=== PATIENT | female | born 1935 | race Caucasian/White ===

== ENCOUNTER 2024-07-01 15:30 | Outpatient (REF) | payer MEDICARE, SELFPAY ==
--- OUTSIDE RECORDS SUMMARY | 2024-07-01 15:37 | XMS_ITS | Encounter Summary ---
Author Organization [facility] Address [address] [place] [address] Care Team Providers Care Structural Steel Shop Supervisor Name Role Phone Tera Serrano MD Primary Care Provider Reason for Visit * Reason Onset Date Comments AWV 06/19/2024 LEFT MSG FOR PAT IENT TO CALL BACK - NEED TO SCHEDULED AWV Encounter Details Date Type Department Care Team (Late st Contact Info) Description 06/19/2024 Telephone Adult Medicine [facility] [address] [place] [address] Tera Serrano MD [address] [place] [address] AWV (LEFT MSG FOR PATIENT TO CALL BACK - NEED TO SCHEDULED AWV ) Social History Tobacco Use Types Packs/Day Years Used Date Smoking Tobacco: Never Smokeless Tobacco: Never Alcohol Use Standard Drinks/Week Comments No 0 (1 standard drink = 0.6 oz pur e alcohol) Housing Instability Answer Date Recorde d Are you worried that in the next 2 months you may not have stable housing? No 03/12/2024 Food Access & Nutrition Answer Date Rec orded Do you have access to a vari ety of food including fruits and vegetables? No 03/12/2024 Health Literacy Answer Date Recorded How often do you need to hav e someone help you when you read instructions, pamphlets, or other written material from your doctor or pharmacy? Never 03/12/2024 Caregiver: How often do you need to have someone help you when you read instructions, pamphlets, or other written material from your doctor or pharmacy? Not on file 03/12/2024 Financial Risk Answer Date Recorded How hard is it for you to pa y for the very basics like food, housing, medical care, and air conditioning / heating? Not very hard 03/12/2024 Transportation Answer Date Recorded Has the lack of transportati on kept you from meetings, work, or from getting things needed for daily living? No Has the lack of transportati on kept you from medical appointments or from getting medications? No 03/12/2024 Social Isolation Answer Date Recorded How often do you feel lonely or isolated from th ose around you? Never 03/12/2024 Food Risk Answer Date Recorded Within the past 12 months we worried whether our food would run out before we got money to buy more. Never true 03/12/2024 Within the past 12 months th e food we bought just didn't last and we didn't have money to get more. Never true 03/12/2024 Dependent Care Answer Date Recorded Do you need help finding or paying for care for your loved ones. For example, child care giver or elderly care for an older adult? No 03/12/2024 Education Answer Date Recorded Do you think completing more education or training, like finishing a GED, going to college, or learning a trade, would be helpful for you? No 03/12/2024 Employment and Income Answer Date Recor ded During the last four weeks, have you been actively looking for work? No 03/12/2024 Living Situation Answer Date Recorded What is your living situation? 0 03/12/2024 Comments No Sex and Gender Information Value Date Recorded Sex Assigned at Not on file Legal Sex Female 3:43 AM EST Gender Identity Not on file Sexual Orientation Not on file documented as of this encounter Progress Notes * Mary Rider - 06/19/2024 11:46 AM EDT If patient calls back please schedule her an AWV appointment Thank you! documented in this encounter Plan of Treatment Upcoming Encounters Date Type Department Care Team (Late st Contact Info) Description 07/15/2024 1:45 PM EDT Office Visit Orthopedic Surgery [facility] [address] [phone] Shaka Navarro DPM [address] [address] 07/23/2024 1:00 PM EDT Office Visit Adult Medicine [facility] [address] [place] [address] Tera Serrano MD [address] [place] [address] 07/27/2024 10:30 AM EDT Ancillary Procedure [facility] [address] [facility] [address] [place] [address] 09/17/2024 2:30 PM EDT Office Visit Orthopedic Surgery [facility] [address] [address] Shaka Navarro DPM [address] [address] documented as of this encounter Visit Diagnoses Not on filedocumented in this encounter Care Teams Structural Steel Shop Supervisor Relationship Specialty Start Date End Date Tera Serrano MD [address] [place] [address] PCP - General Internal Medicine 02/25/24 documented as of this encounter
--- OUTSIDE RECORDS SUMMARY | 2024-07-01 15:38 | XMS_ITS | Data Portability ---
Author Organization [facility] Address [address] [facility] [address] [place] [address] Care Team Providers Care Box Printer Name Role Phone MARIANA PASTOR Primary Care Provider Assessment Encounter Date Assessment Date Assessment LastModified by Organization Details LastModified Time 11/20/2023 11/20/2023 88-year-old female presents for hearing loss. Otologic exam is unremarkable. Audiometric testing today shows mild to severe sensorineural hearing loss bilaterally which is symmetrical. Results were reviewed with patient and her . She would certainly be an excellent candidate for bilateral amplification and will be set up for hearing aid evaluation. She was given a copy of her hearing test along with medical clearance for bilateral hearing aids. Recommend repeat hearing test every 1 to 2 years or sooner for acute changes in hearing. terrence Not available 11/20/2023 10:40:13 Plan of Treatment Reminders Order Date Submit Date Provider Last Modified By Organization Details Last Modified Time Details Appointments None record ed. Lab None record ed. Referral None record ed. Procedures None record ed. Surgeries None record ed. Imaging None record ed. Medication Orders None record ed. Patient TargetsNo targets recorded. Patient InstructionsNo instructions recorded. Reason for Referral None Reported. Results Created Date Observation Date Name Description Value Unit Range Abnormal Flag Note LastModifiedBy Organization Detail LastModifiedTime 11/20/19 24 audio gram No observ ation record ed. BARCODE Not Available 2023 12:34:29 Result Notes None recorded. 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 ? ?gren's syndrome 11532903 Active 2023 BRIGDIA HUTCHINSON PA-C [address] [facility],[place] [address], [place], [address], [place] - [facility] [place] 4 09:50:11 Sick sinus syndrome 99976885 Active 2023 s/p pacemaker KASSANDRA LINDSEY[address], [address] [facility], [place], [address], [place] - [facility] [place] 4 09:53:43 Replacem ent of aortic valve Completed 202311/20/2023 BRIGIDA HUTCHINSON PA-C [address] [place] [address], [address] [facility], [place], [address], [place] - [facility] [place] 4 09:54:44 Sensorin eural hearing loss of bilatera l ears 249980987 Active 2023 SHAUNA WALLACE [place], [facility] [address] [facility], [address] [facility], [place], [address], [place] - [facility] [place] 4 09:55:11 Problem Notes None recorded. Procedures Surgical History Date Name Laterality Status Provider Name and Address Organization Details Recorded Time 11/20/2023 Comp Audio with Tymps - 09991 & 43423 completed SHAUNA WALLACE [place], CCC-A [address] [facility],[place] [address], [place], [address], [facility] - [facility] 11/20/2023 09:55:20 Imaging Results Imaging Date Name Status LastModified by Organiz ation Details LastModified Time 11/20/2023 audiogram completed BARCODE Information no t available 11/20/2023 12:34:29 Procedure Notes None recorded. Medical Equipment None Reported. Allergies Allergen ID Allergen Name Allergen Category Reaction Reaction Severity Criticality Documentation Date Start Date Code Code System Note Provider Name and Address Organization Details Recorded Time 445897 cow milk allergeni c extract food,medi cation Not available Not available Not available 11/20/2023 07853 5 RxNorm Dino vigil [place] - [facility] 4 10:38:39 Medications Name Sig Start Date Stop Date Status Note LastModified by Organization Details LastModified Time pilocarpine 5 mg tablet active Not Available Not Available Not Available isosorbide mononitrate ER 30 mg tablet,exten ded release 24 hr TAKE 1 TABLET DAILY BY MOUTH active Not Available Not Available No t Available losartan 25 mg tablet Take 1 tablet every day by oral route. active Not Available Not Available No t Available estradiol 0.01% (0.1 mg/gram) vaginal cream USE DIRECTED APPLY 2 GRAMS TO EXTERNAL VAGINA ONCE EVERY DAY FOR 2 WEEKS THEN EVERY OTHER DAY FOR 2 WEEKS THEN EVERY 3 DAYS THEREAFTER active Not Available Not Available N ot Available Vitals None Recorded Social History None recorded. Functional Status None recorded. Mental Status None recorded. Family History Nothing Reported. Medical History Condition Response Cancer Y Arthritis Y Hypertension Y Gynecological HistoryNo gynecological history recorded. Obstetrics History GPAL:G 0 P 0 0 0 0 Past Encounters Encounter ID Performer Location Encounter Start Date Encounter Closed Date Diagnosis/Indication Diagnosis SNOMED-CT Code Diagnosis ICD10 Code Diagnosis Note [id number] VALENCIA FLETCHER PA-C [facility] [address] [address] 11/20/2023 09:18:09 11/20/2023 10:17:57 Sensorineural hearing loss of bilateral ears 656432015 H90.3 Audiologic al evaluation results: Right ear: {{Normal N ormal through 2 kHz Mild M oderate Mo derately-s evere Mamta re Profoun d Mild to severe#}} {{hearing sloping to a mild slopi ng to a moderate s loping to moderately severe slo ping to severe slo ping to profound f lat high frequency low frequency mid frequency cookie bite turner curve SNHL #}} {{with* se nsorineura l hearing loss with condu ctive hearing loss with mixed hearing loss with}} {{excellen t good* fa ir poor no measurable }} word recognitio n. Left ear: {{Normal N ormal through 2 kHz Mild M oderate Mo derately-s evere Mamta re Profoun d Mild to severe#}} {{hearing sloping to a mild slopi ng to a moderate s loping to moderately severe slo ping to severe slo ping to profound f lat high frequency low frequency mid frequency cookie bite turner curve SNHL #}} {{with* se nsorineura l hearing loss with condu ctive hearing loss with mixed hearing loss with}} {{excellen t good* fa ir poor no measurable }} word recognitio n. Tympanomet ry: Right Ear:{{Type A* Type As Type Ad Type C Type C, shallow & rounded Ty pe B Type B with large volume Cou ld not maintain a hermetic seal}} Left Ear:{{Type A* Type As Type Ad Type C Type C, shallow & rounded Ty pe B Type B with large volume Cou ld not maintain a hermetic seal}}Rec: Trial amplificat ion Health Concerns Section Related Observation LastModified by Organization Bryon ls LastModified Time None Recorded Concern Status LastModified by Organization Details LastModified Time None Recorded Advance Directives Directive None Recorded Payers Insurance Date Sequence Insurance Name Policy Number Policy Allen Covered Member ID Allen Member ID Guarantor Name 02/28/2024 1 [employer] Matias [id number] [employer] 02/28/2024 1 [employer] - [facility] (MEDICARE REPLACEMENT HMO) Qlibri Matias [id number] Qlibri Matias Notes Date Note Type Note Provider Name and Address Organization Details Recorded Time 11/20/2023 text/html 86-year-old fema randy with past medical history of lymphedema, Sjogren's syndrome, aortic valve replacement with a bioprosthetic valve, sick sinus syndrome status post pacemaker, and hypertension obesity presents for evaluation of the ears and hearing. She reports she cannot hear the phone ring. She needs her daughters to repeat what they are saying over the phone. This has been gradual over the last 6 months bilaterally. Endorses bilaterally itchiness which she relieves with a daniel pin. Daniel pin pulls out a lot of flakes. Denies otalgia, otorrhea, tinnitus, and vertigo. Denies prior history of ear infections or ear surgeries. No history of loud noise exposure. She is interested in a hearing aid consult. No Qtip use. VALENCIA FLETCHER PA-C [address] [place] [address], [phone], [facility] 11/20/2023 10:40:38 OBGyn Episode No OBEpisode recorded.
--- OUTSIDE RECORDS SUMMARY | 2024-07-01 15:38 | XMS_ITS | Clinical Summary ---
Author Organization [facility] Address [address] [place] [address] Care Team Providers Care Sparmaker Name Role Phone Yony Worrell MD Primary Care Provider Allergies Active Allergy Reactions Criticality Noted Date Comments Aspirin 06/15/2021 Oxycodone Nausea And Vomiting 06/15/2021 Medications Medication Sig Dispensed Refills Start Date End Date Status losartan (COZAAR) tablet 50 mg Take 50 mg by mouth daily. 0 Active furosemide (LASIX) 20 MG tablet Take 20 mg by mouth 2 (two) times a day. 0 Active bisacodyl (DULCOLAX) 5 MG EC tablet Take 5 mg by mouth daily as needed for constipation. 0 Active aspirin EC 81 MG tablet Take 81 mg by mouth daily. 0 Active nitroglycerin (NITROSTAT) 0.[address] 0.4 mg under the tongue every 5 (five) minutes as needed for chest pain. 0 Active denosumab (PROLIA) injection 60 mg/mL Inject 60 mg under the skin once. 0 Active acetaminophen (Tylenol 8 Hour Arthritis Pain) 650 MG CR tablet Take 650 mg by mouth every 8 (eight) hours as needed for pain. 0 Active Calcium Carb-Cholecalciferol (Calcium 600 + D) 600-200 MG-UNIT TABS Take by mouth. 0 Active Multiple Vitamins-Minerals (WOMENS 50+ MULTI VITAMIN/MIN PO) Take by mouth. 0 Activ e Active Problems No known active problems Social History Tobacco Use Types Packs/Day Years Used Date Smoking Tobacco: Never Smokeless Tobacco: Never Alcohol Use Standard Drinks/Week Comments Not Currently 0 (1 standard drink = 0.6 oz pur e alcohol) Sex and Gender Information Value Date Recorded Sex Assigned at Not on file Gender Identity Not on file Sexual Orientation Not on file Job Start Date Occupation Industry Not on file Not on file Not on file Last Filed Vital Signs Vital Sign Reading Time Taken Comments Blood Pressure 148/59 06/15/2021 3:04 PM EDT Pulse 62 06/15/2021 3:04 PM EDT Temperature 36.8 ??C (98.2 ??F) 06/15/2021 3:04 PM ED T Respiratory Rate - - Oxygen Saturation 98% 06/15/2021 3:04 PM EDT Inhaled Oxygen Concentration - - Weight 81.2 kg (179 lb) 06/15/2021 3:04 PM EDT Height - - Body Mass Index - - Plan of Treatment Health Maintenance Due Date Last Done Comments COVID-19 Vaccine (#1) 03/18/1936 Depression Screening 1948 Preventative Health Evaluation 1954 Shingrix-Zoster Vaccine (1 of 2) 1986 Fall Risk Assessment 2001 Osteoporosis Screening (DEXA Scan) 2001 RSV Adult > 60+ Yrs or (1 - 1-dose 75+ series) 09/16/2011 Pneumococcal Vaccine (2 of 2 - PPSV23 or PCV20) 11/25/2015 11/24/2014 DTap / Tdap / Td (2 - Td or Tdap) 05/28/2022 05/28/2012 Influenza Vaccine (#1) 2023 8, 11/23/2015, 11/02/2014, Additional history exists Hepatitis B Vaccines Aged Out No long er eligible based on patient's age to complete this topic RSV Ped < 20 months Aged Out No longe r eligible based on patient's age to complete this topic Care Teams Sparmaker Relationship Specialty Start Date End Date Yony Worrell MD [address] [place] [address] PCP - General Internal Medicine 06/15/21
--- OUTSIDE RECORDS SUMMARY | 2024-07-01 15:38 | XMS_ITS | Clinical Summary ---
Author Organization [facility] Address [address] [place] [address] Care Team Providers Care Lobbyist Name Role Phone Unavailable Primary Care Provider Unavailabl e Social History Tobacco Use Types Packs/Day Years Used Date Smoking Tobacco: Never Assessed Comments Unknown Sex and Gender Information Value Date Recorded Sex Assigned at Not on file Legal Sex Female 5:02 AM EDT Gender Identity Not on file Sexual Orientation Not on file Plan of Treatment Health Maintenance Due Date Last Done Comments DTaP/Tdap/Td (1 - Tdap) 1954 Pneumococcal 50+ years (1 of 1 - PCV) 1986 Zoster (Shingrix) (1 of 2) 1986 Bone Density 2001 RSV (1 - 1-dose 75+ series) 09/16/2011 COVID-19 Vaccine (2023-2 5 season) 2023 Influenza (#1) 2023 HPV Vaccine Aged Out No longer eligi ble based on patient's age to complete this topic Hep A Aged Out No longer eligi ble based on patient's age to complete this topic Hep B Aged Out No longer eligi ble based on patient's age to complete this topic Hib Aged Out No longer eligi ble based on patient's age to complete this topic Mammogram/Breast Imaging Discontinued Meningococcal ACWY Aged Out No longer eligible based on patient's age to complete this topic Pap Smear Discontinued Zoster (Zostavax) Discontinued
--- OUTSIDE RECORDS SUMMARY | 2024-07-01 15:38 | XMS_ITS | Clinical Summary ---
Author Organization [address] [place] [address] [place] [phone] Phone Care Team Providers Care Physiotherapy Aide Name Role Phone Tera Serrano MD Primary Care Provider Allergies Active Allergy Reactions Criticality Noted Date Comments Aspirin Other 10/25/2010 bruising Codeine Other 10/25/2010 sweats Oxycodone Nausea And Vomiting 02/14/2011 Medications nitroglycerin (NITROSTAT) 0.[address] 1 Tablet under the tongue every 10 minutes as needed (for cp). 3 Active carboxymethylcel lulos/glycerin (REFRESH OPTIVE OPHT) apply to the eye. 1 gtt each eye once a day Active dental adhesive (DENTURE CARE PRODUCTS DENT) DENTURE CARE PRODUCTS (FIXODENT EXTRA HOLD) POWDER Active calcium citrate-vitamin D3 (CALTRATE MAXIMUM) 315 mg-6.25 mcg (250 unit) per tablet Take 1 Tab by mouth daily. Active MULTIVITAMIN ORAL Take 1 Tab by mouth daily. Active aspirin 81 mg EC tablet Take 81 mg by mouth daily. Active dextran 70/hypromellose/ PF (TEARS NATURALE FREE, PF, OPHT) apply 1 Drop to the eye daily. Both eyes Active pilocarpine (SALAGEN) 5 mg tablet Take 2 Tablets by mouth 2 times daily. 360 each 5 Active acetaminophen (TYLENOL 8 HOUR) 650 mg 8 hr tablet Take 1 tablet (650 mg total) by mouth every 8 (eight) hours if needed for mild pain. Do not crush, chew, or split. Active furosemide (LASIX) 20 mg tablet Take 1 tablet (20 mg total) by mouth 3 (three) times a day. 270 each 1 5 Active isosorbide mononitrate (IMDUR) 30 mg 24 hr tablet Take 1 tablet (30 mg total) by mouth 1 (one) time each day. Do not crush or chew. 90 tablet 1 5 Active losartan (COZAAR) 25 mg tablet Take 1 tablet (25 mg total) by mouth 1 (one) time each day. 90 tablet 1 5 Active Active Problems Problem Noted Date Diagnosed Date Other fatigue 06/01/2024 Assessment & Plan (06/01/2024 12:17 PM EDT): Her fatigue is likely multifactorial due to underlying chronic health conditions, obesity, and deconditioning; however, in listening to her description of recent events it appears as though she has been very busy preparing to downsize her home and has been lifting and moving a significant amount of home goods which appears to be well beyond her current level of activity. We will update labs to rule out anemia, electrolyte disturbance, or for signs of heart failure which may be contributory. I have encouraged her to be mindful of taking frequent rest periods and not overexerting her self as this may be the case currently. Proper self care encouraged; she will call for any new or worsening heart failure or ischemic symptoms should they occur. Orders: Basic metabolic panel; Future Magnesium; Future Complete blood count; Future B-type natriuretic peptide; Future Pulsatile neck mass 06/01/2024 Assessment & Plan (06/01/2024 12:17 PM EDT): We will evaluate this further with a carotid duplex. Orders: Vascular US duplex carotid bilateral; Future Chronic heart failure with p reserved ejection fraction (CMS/HCC V24, CMS/HCC V28) 04/16/2024 Assessment & Plan (06/01/2024 12:17 PM EDT): As discussed above, fatigue appears to be her biggest concern today but she does not offer any symptoms to present concern for overt heart failure. She continues to have significant lower extremity edema bilaterally, but this appears to be improved from previous and she is using, as directed. Encouraged continued low-sodium diet as well as elevation as able; she does not appear to be doing a lot of elevation these days as she is remaining quite active cleaning her house out; she was reminded to take appropriate time to rest as discussed above. We discussed risk reduction through lifestyle modifications including healthy diet, routine exercise, and weight management. We reviewed heart failure management including low-sodium diet, symptom surveillance, daily weights, and medication compliance. I've asked the patient to call if they develop worsening symptoms of heart failure such as increased shortness of breath, new or worsening cough, increased swelling in the legs or ankles, or weight gain of more than 2 pounds in one day or 4 pounds in one week. Orders: B-type natriuretic peptide; Future Assessment & Plan (04/16/2024 9:19 PM EST): On review of Dr. Hays's note from 03/12/2024, her presentation today does not appear all that different from when he saw her last. She continues to have intermittent chest tightness as well as increased lower extremity edema, some of which can be attributed to lymphedema. I have provided her and her son with a written prescription for compression wraps today and they will obtain these for her; they are working on obtaining a recliner so that she may elevate her legs and is aware of the importance of this. She will continue with a low-sodium diet. Her son sent us a message through [employer] after their visit today to confirm that she has been in fact taking furosemide 40 mg daily; follow-up BMP on 03/25/2023 after this increase was stable. As such we will increase her furosemide once again to 60 mg daily for 3 days to see if this provides any improvement in symptoms. He will notify us of how she responded to this on 04/20 or 04/21 and update a BMP within a similar time frame; we will consider continuing the increased dose at that time. If this increase does not improve symptoms, I will discuss her case further with Dr. Hays; we may need to reevaluate the need for an ischemic workup as discussed further below. We discussed risk reduction through lifestyle modifications including healthy diet, routine exercise, and weight management. We reviewed heart failure management including low-sodium diet, symptom surveillance, daily weights, and medication compliance. I've asked the patient to call if they develop worsening symptoms of heart failure such as increased shortness of breath, new or worsening cough, increased swelling in the legs or ankles, or weight gain of more than 2 pounds in one day or 4 pounds in one week. Orders: Basic metabolic panel; Future Magnesium; Future furosemide (LASIX) 20 mg tablet; Take 2 tablets (40 mg total) by mouth 1 (one) time each day. Cardiac pacemaker in situ 04/15/2024 Assessment & Plan (06/01/2024 12:17 PM EDT): Assessment & Plan (04/16/2024 9:19 PM EST): Bunion 03/12/2024 Toenail deformity 03/12/2024 History of prosthetic aortic valve 03/12/2024 Assessment & Plan (04/16/2024 9:19 PM EST): As above. Aortic stenosis 04/25/2023 Overview (01/11/2024): Last Assessment & Plan: Status post bioprosthetic aortic valve replacement in 2011. He is due to repeat an echocardiogram in October 2023; if carotid duplex results without significant stenosis, may consider repeating echocardiogram sooner given murmur noted on exam today. Most recent echocardiogram while in the ER was a [id number] study and did not significantly evaluate the aortic valve. The patient offers no symptoms concerning for worsening stenosis of the bioprosthetic valve, which is reassuring. We will continue to readdress this. Assessment & Plan (06/01/2024 12:17 PM EDT): The patient is status post aortic valve replacement in 2011 and has had elevated but stable gradients noted as far back as 2013. Recent echocardiogram completed 10/2023 showed gradients that were relatively unchanged from previous. She continues to have similar symptoms as though she had at her last visit with Dr. Hays in February. Her second heart sound remains well-preserved on exam today. Should she note lack of symptom improvement with this increase in torsemide, we may entertain the idea of repeating an echocardiogram for reevaluation. Assessment & Plan (04/16/2024 9:19 PM EST): The patient is status post aortic valve replacement in 2011 and has had elevated but stable gradients noted as far back as 2013. Recent echocardiogram completed 10/2023 showed gradients that were relatively unchanged from previous. She continues to have similar symptoms as though she had at her last visit with Dr. Hays in February. Her second heart sound remains well-preserved on exam today. Should she note lack of symptom improvement with this increase in torsemide, we may entertain the idea of repeating an echocardiogram for reevaluation. Bilateral carotid bruits 04/25/2023 Overview (01/11/2024): Last Assessment & Plan: The patient is noted to have bilateral carotid bruit today; she does have a soft murmur from the aortic valve as well. The murmur from the aortic valve does not appear to be as intense as the bilateral carotid bruits are on auscultation; we will have the patient undergo carotid duplex to rule out underlying stenosis. Will continue with proper blood pressure and lipid control. We will readdress this as needed. Coronary artery disease invo lving alatna coronary artery of alatna heart without angina pectoris 04/25/2023 Overview (06/01/2024): Severe 3 vessel disease seen on nuclear stress test 10/17/2022. Assessment & Plan (06/01/2024 12:17 PM EDT): No reports of chest tightness today and shortness of breath appears to have improved with short interval increase in furosemide dosing. She is not on beta-blockade nor is she on any antilipid medications; we will have her continue aspirin as well as isosorbide as an antianginal. We reviewed sublingual nitroglycerin use and she verbalizes understanding as well as when to seek urgent medical attention. The patient was advised to seek emergent medical attention by calling 911 if they were to develop severe dyspnea, chest pain that did not resolve with rest or nitroglycerin, or if they were to faint. Assessment & Plan (04/16/2024 9:19 PM EST): As above, the patient reports ongoing intermittent chest tightness with exertion as well as associated shortness of breath. We must consider that this may be an anginal equivalent; should her symptoms not improve with his increased dose of furosemide as outlined above, we may consider a repeat ischemic workup for further evaluation. He is not on beta-blockade nor is she on any antilipid medications; we will have her continue aspirin as well as isosorbide as an antianginal. We reviewed sublingual nitroglycerin use and she verbalizes understanding as well as when to seek urgent medical attention. The patient was advised to seek emergent medical attention by calling 911 if they were to develop severe dyspnea, chest pain that did not resolve with rest or nitroglycerin, or if they were to faint. Aneurysm of ascending aorta without rupture ([facility] /[facility] V24) 10/18/2022 Overview (01/11/2024): Last Assessment & Plan: Will continue to reevaluate this on serial imaging and refer for surgical intervention as appropriate. Assessment & Plan (06/01/2024 12:17 PM EDT): Stable on recent echocardiogram from 10/2023. We will continue to monitor this on serial echocardiograms. Blood pressure remains well-controlled. Assessment & Plan (04/16/2024 9:19 PM EST): Stable on recent echocardiogram from 10/2023. We will continue to monitor this on serial echocardiograms. Blood pressure remains well-controlled. 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 2010 DEXA: LS-spine T score -1.3., Hip T score -1.4 Treated with Actonel, alendronate - ? Compliance. Sinoatrial node dysfunction ([facility] V24, CMS/ C V28) 06/30/2012 Assessment & Plan (06/01/2024 12:17 PM EDT): Now status post pacemaker implantation in 2013; normal device function noted on most recent device check. Continue with in office and remote device checks as per device clinic protocol. Assessment & Plan (04/16/2024 9:19 PM EST): Now status post pacemaker implantation in 2013; normal device function noted on most recent device check. Continue with in office and remote device checks as per device clinic protocol. Diverticulitis of colon without hemorrhage 08/21 Overview (01/11/2024): Seen at [facility] 08/17/2011. Back pain 10/25/2010 Glaucoma 10/25/2010 HTN (hypertension), benign 10/25/2010 Assessment & Plan (06/01/2024 12:17 PM EDT): Blood pressure stable on current medical therapy; continue furosemide, losartan, and isosorbide. Recent metabolic panel stable with normal renal function and electrolytes as above. Assessment & Plan (04/16/2024 9:19 PM EST): Pressure stable on current medical therapy; continue furosemide, losartan, and isosorbide. Will obtain metabolic panel as above. IBS (irritable bowel syndrome) 10/25/2010 Overview (01/11/2024): [facility] and bx 08/17/2011, no microscopic colitis. Obesity 10/25/2010 Overview (01/11/2024): Last Assessment & Plan: Patient is overweight. Approaches towards weight loss are discussed, including burning more calories than one takes in by portion control and regular exercise with an emphasis on duration rather than intensity . Sjogren's syndrome (CMS/[facility] V24) 10/25/2010 Overview (01/11/2024): 2011: Rheumatoid factor >320, JOYCELYN >1:2650(speckled), Immunoelectrophoresis negative for monoclonal spike, SS-A and SS-B positive. Evoxac Tried for dry mouth. Somewhat helpful but caused sweatiness so it was discontinued. Encounters Date Type Department Care Team Description 06/25/2024 1:30 PM EDT Ancillary Procedure [facility] Cardiology [facility] [address] [place] [address] Pulsatile neck mass 06/19/2024 Telephone Adult Medicine [address] [phone] Tera Serrano MD AWV (LEFT MSG FOR PATIENT TO CALL BACK - NEED TO SCHEDULED AWV ) 06/15/2024 1:45 PM EDT Office Visit Orthopedic Surgery [facility] [address] [facility] [address] [place] [phone] Shaka Navarro, DPM Dermatophytosis of nail (Primary Dx); Pain in toe of right foot; Pain in toe of left foot; Corns and callosities; Primary osteoarthritis of both feet; Bilateral femoral artery stenosis (CMS/HCC V24); Metatarsalgia of both feet 06/09/2024 Telephone Adult Medicine [address] [phone] Nkechi Louis [place] Insurance Referral ([employer]) 05/28/2024 1:10 PM EDT Office Visit [facility] [address] [facility] [address] [place] [phone] Micheline Chung NP Other fatigue (Primary Dx); Chronic heart failure with preserved ejection fraction (CMS/HCC V24, CMS/HCC V28); Coronary artery disease involving alatna coronary artery of alatna heart without angina pectoris; Nonrheumatic aortic valve stenosis; HTN (hypertension), benign; Aneurysm of ascending aorta without rupture (CMS/HCC V24); Sinoatrial node dysfunction (CMS/HCC V24, CMS/HCC V28); Cardiac pacemaker in situ; Pulsatile neck mass 05/15/2024 7:20 PM EDT Ancillary Procedure [facility] - [facility] [address] [facility] [address] [place] [phone] 04/27/2024 4:20 PM EDT Ancillary Procedure [facility] - [facility] [address] [facility] [address] [place] [phone] 04/20/2024 1:51 PM EDT - 04/20/2024 11:59 PM EDT Hospital Encounter [facility] [place] [address] [place], [place] [phone] Left foot pain Discharge Disposition: Home or Self Care 04/20/2024 1:15 PM EDT Office Visit Adult Medicine [facility] [address] [place], [place] [phone] Tera Serrano MD Bilateral hearing loss, unspecified hearing loss type (Primary Dx); Left foot pain; HTN (hypertension), benign; Bilateral lower extremity edema; Osteoporosis, unspecified osteoporosis type, unspecified pathological fracture presence; Aneurysm of ascending aorta without rupture (CMS/HCC V24); Lymphedema 04/16/2024 1:10 PM EST Office Visit [facility] - [facility] [address] [facility] [address] [place] [phone] Micheline Chung NP Chronic heart failure with preserved ejection fraction (CMS/HCC V24, CMS/HCC V28) (Primary Dx); Coronary artery disease of alatna artery of alatna heart with stable angina pectoris (CMS/HCC V24); Nonrheumatic aortic valve stenosis; History of prosthetic aortic valve; Aneurysm of ascending aorta without rupture (CMS/HCC V24); Sinoatrial node dysfunction (CMS/HCC V24, CMS/HCC V28); Cardiac pacemaker in situ; HTN (hypertension), benign from Last 3 Months Immunizations Name Administration Dates Next Due Influenza trivalent, 0.5mL ( Fluad) 65yo and older 11/11/2017,11/23/2015 Influenza trivalent, 0.5mL, preservative free (Fluarix; FluLaval; Fluzone) ages 6mo and older (Afluria) 3 years and older 11/02/2014,10/30/2012,10/29/2011,2010 Influenza, Unspecified 11/21/2016,12/23/2013 Pneumococcal conjugate 13 va lent (Prevnar 13, PCV13) 2mo and older 11/24/2014 Pneumococcal, Unspecified 03/14/2016 Td Tetanus diptheria (Tdvax) 7yo and older 10/25/2010 Tdap Tetanus diptheria acell ular pertussis (Boostrix; Adacel) 7yo and older 05/28/2012 Surgical History Surgery Date Site/Laterality Comments EYE SURGERY PROCEDURE: HISTORICAL EYE SURGERY TONSILLECTOMY PROCEDURE: HISTORICAL TONSILLECTOMY APPENDECTOMY PROCEDURE: HISTORICAL APPENDECTOMY CHOLECYSTECTOMY PROCEDURE: HISTORICAL CHOLECYSTECTOMY TOTAL KNEE ARTHROPLASTY PROCEDURE: HISTORICAL TOTAL KNEE REPLACE; COMMENT: bilateral WRIST SURGERY PROCEDURE: HISTORICAL WRIST SURGERY; COMMENT: bilateral cts COLONOSCOPY 01/05/2002 PROCEDURE: HISTORICAL COLONOSCOPY; COMMENT: Dr Roche ([facility]): hx past polyp ; scattered tics o/w negative to cecum. ESOPHAGOGASTRODUODENOSCOPY 04/02/2001 PROCEDURE: [place] EGD TRANSORAL BIOPSY SINGLE/MULTIPLE; COMMENT: Dr Roche ([facility]): Minimal hiatal hernia and slight gastritis. biopsy negative for H. pylori OTHER SURGICAL HISTORY PROCEDURE: [place] RPLCMT AORTIC VALVE ANNULUS ENLGMENT NONC SINUS OTHER SURGICAL HISTORY 2002 PROCEDURE: HISTORICAL SPLENECTOMY; COMMENT: for thrombocytopenia COLONOSCOPY W/ BIOPSIES 08/17/2011 PROCEDURE: KS COLONOSCOPY W/BIOPSY SINGLE/MULTIPLE; COMMENT: diverticulosis; incomplete to the TC; bx negative for microscopic colitis. PACEMAKER IMPLANT PROCEDURE: HISTORICAL PACEMAKER Medical History Medical History Date Comments Diverticulosis of colon (wit hout mention of hemorrhage) 08/22/2011 DX:Diverticulosis of colon ( without mention of hemorrhage) S/P AVR (aortic valve replacement) 10/29/2011 DX:S/P AVR (aortic valve replacement); COMMENT: Bioprosthetic valve 03/25 Pacemaker 05/30/2012 DX:Pacemaker Sick sinus syndrome (CMS/HCC V24, CMS/HCC V28) 06/30/2012 DX:Sick sinus syndrome (HCC) Sjogren's syndrome (CMS/HCC V24) 10/25/2010 DX:Sjogren's syndrome (HCC) IBS (irritable bowel syndrome) D X:IBS (irritable bowel syndrome) HTN (hypertension) DX:HTN (hyper tension) Lymphedema DX:Lymphedema Family History Medical History Relation Name Comments Breast cancer Aunt p ? age fathers side Arthritis Brother 1 Arthritis Father Colon cancer Uncle fathers side Coronary artery disease Neg Hx Ovarian cancer Neg Hx Relation Name Status Comments Aunt p ? age Brother 1 Brother 2 Alive dm Brother 3 Alive Brother 4 Alive Brother 5 Alive Brother 6 Alive Father (Age 89) mi Mother (Age 94) mi Sister Alive Uncle Social History Tobacco Use Types Packs/Day Years Used Date Smoking Tobacco: Never Smokeless Tobacco: Never Tobacco Cessation:Counseling Given: Not Answered Alcohol Use Standard Drinks/Week Comments No 0 [...] for your loved ones. For example, child health associate or elderly care for an older adult? [...] on file Sexual Orientation Not on file Obstetrics History Last Filed Vital Signs Vital Sign Reading Time Taken Comments Blood Pressure 134/70 05/28/2024 1:11 PM EDT Pulse 72 05/28/2024 1:11 PM EDT Temperature 36.1 ??C (96.9 ??F) 04/20/2024 1:21 PM ED T Respiratory Rate 18 04/20/2024 1:21 PM EDT Oxygen Saturation 97% 05/28/2024 1:11 PM EDT Inhaled Oxygen Concentration - - Weight 75.8 kg (167 lb) 05/28/2024 1:11 PM EDT Height 149.9 cm (4' 11 ) 05/28/2024 1:11 PM EDT Body Mass Index 33.73 05/28/2024 1:11 PM EDT Plan of Treatment Upcoming Encounters Date Type Department Care Team (Late st Contact Info) Description 07/15/2024 1:45 PM EDT Office Visit Orthopedic Surgery - [place] [address] [phone] Shaka Navarro DPVanessa [address] [address] 07/23/2024 1:00 PM EDT Office Visit Adult Medicine [facility] [address] [place] [phone] Tera Serrano MD [address] [place] [address] 07/27/2024 10:30 AM EDT Ancillary Procedure [facility] [address] [facility] [address] [place] [phone] 09/17/2024 2:30 PM EDT Office Visit Orthopedic Surgery - [place] [address] [facility] [address] [place] [phone] Shaka Navarro, DPM 175 [facility] [address] [place] [address] Health Maintenance Due Date Last Done Comments Pneumococcal Vaccine: 50+ Years (2 of 2 - PPSV23) 01/19/2015 03/14/2016, 03/14/2016, 11/24/2014 Medicare Annual Wellness Visit 01/20/2022 Osteoporosis Screening (Bone Density Screening) 01/20/2022 Depression Screening 03/12/2025 03/12/2024 Falls Risk Assessment 03/12/2025 03/12/2024 Social Influencers of Health Screening 03/12/2025 03/12/2024 Hypertension/CHF/CAD Annual BMP Blood Test 06/02/2025 06/02/2024, 04/20/2024, 03/25/2024, Additional history exists DTaP,Tdap,and Td Vaccines (4 - Td or Tdap) 11/12/2032 11/12/2022, 05/28/2012, 10/25/2010 Zoster Vaccines Completed 08/04/2019, 03/21/2019 RSV Immunization Adult Patients Completed 11/12/2022 Influenza Vaccine Completed 11/06/2023, , 11/07/2021, Additional history exists COVID-19 Vaccine Completed 05/08/2024, , 11/02/2022, Additional history exists Cholesterol Screening (Lipid Panel) Discontinued HIB Vaccines Aged Out No longer eligi ble based on patient's age to complete this topic HPV Vaccines Aged Out No longer eligi ble based on patient's age to complete this topic Hepatitis A Vaccines Aged Out No long er eligible based on patient's age to complete this topic Hepatitis B Vaccines Aged Out No long er eligible based on patient's age to complete this topic IPV Vaccines Aged Out No longer eligi ble based on patient's age to complete this topic MMR Vaccines Aged Out No longer eligi ble based on patient's age to complete this topic Meningococcal ACWY Vaccine Aged Out N o longer eligible based on patient's age to complete this topic Meningococcal B Vaccine Aged Out No l onger eligible based on patient's age to complete this topic RSV Immunization Patients Under 20 months Aged Out No longer eligible based on patient's age to complete this topic Varicella Vaccines Aged Out No longer eligible based on patient's age to complete this topic Medical Devices Implanted 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 Shelf Expiration Date Model / Serial / Lot [employer]-Grabiel 2272 Assurity Mri(Tm) [id number] Implanted: (Quantity not on file) Cardiac Pacemaker [facility] [employer] 2272 ASSURITY MRI(TM) / [id number] / Procedures Procedure Name Priority Date/Time Associated Diagnosis Comments BASIC METABOLIC PANEL Routine 06/02/2024 3:16 PM EDT Other fatigue MAGNESIUM Routine 06/02/2024 3:16 PM EDT Other fatigue C-REACTIVE PROTEIN Routine 06/02/2024 3: 16 PM EDT 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) Senile osteoporosis ASPARTATE AMINOTRANSFERASE Routine 06/02/2024 3:16 PM EDT 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) Senile osteoporosis ALANINE AMINOTRANSFERASE Routine 025 3:16 PM EDT 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) Senile osteoporosis VITAMIN D 25 HYDROXY Routine 06/02/2024 3:16 PM EDT 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) Senile osteoporosis C3 COMPLEMENT Routine 06/02/2024 3:16 PM EDT 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) Senile osteoporosis C4 COMPLEMENT Routine 06/02/2024 3:16 PM EDT 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) Senile osteoporosis B-TYPE NATRIURETIC PEPTIDE Routine 06/02/2024 3:13 PM EDT Other fatigue Chronic heart failure with preserved ejection fraction (CMS/HCC V24, CMS/HCC V28) CBC WITH AUTO DIFFERENTIAL Routine 06/02/2024 3:10 PM EDT 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) Senile osteoporosis CBC AND DIFFERENTIAL Routine 06/02/2024 3:10 PM EDT 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) Senile osteoporosis SEDIMENTATION RATE Routine 06/02/2024 3: 10 PM EDT 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) Senile osteoporosis CARDIAC DEVICE CHECK- REMOTE- MURJ Routine 05/15/2024 7:15 PM EDT CARDIAC DEVICE CHECK- REMOTE- MURJ Routine 04/27/2024 4:18 PM EDT BASIC METABOLIC PANEL Routine 04/20/2024 2:21 PM EDT Chronic heart failure with preserved ejection fraction (CMS/HCC V24, CMS/HCC V28) MAGNESIUM Routine 04/20/2024 2:21 PM EDT Chronic heart failure with preserved ejection fraction (CMS/HCC V24, CMS/HCC V28) XR FOOT 3+ VIEWS LEFT Routine 04/20/2024 2:04 PM EDT Left foot pain from Last 3 Months Results * Vitamin D 25 hydroxy (06/02/2024 3:16 PM EDT) Vit D, 25-Hydroxy 30.4 30.0 - 80.0 ng/mL LAB CHEMISTRY METHOD 06/02/2024 6:42 PM EDT [facility] Blood Venous blood specimen / Unknown Venipuncture / Unknown 06/02/2024 3:16 PM EDT 06/02/2024 3:17 PM EDT us Nitin Masters MD LAB BLOOD ORDERABLES Final R esult Performing Organization Address City/[facility]/ZIP Co de Phone Number [facility] [address] [place] [address], [place] [phone] * (ABNORMAL) C3 complement (06/02/2024 3:16 PM EDT) [facility] C3 Complement 80(L) 88 - 201 mg/dL LAB CHEMISTRY METHOD 06/02/2024 5:55 PM EDT [facility] Blood Venous blood specimen / Unknown Venipuncture / Unknown 06/02/2024 3:16 PM EDT 06/02/2024 3:17 PM EDT us Nitin Masters MD LAB BLOOD ORDERABLES Final R esult Performing Organization Address [facility]/ZIP Co de Phone Number [facility] [address] [place] [address], [place] [phone] * (ABNORMAL) C4 complement (06/02/2024 3:16 PM EDT) [facility] C4 Complement 10(L) 16 - 47 mg/dL LAB CHEMISTRY METHOD 06/02/2024 5:55 PM EDT [facility] Blood Venous blood specimen / Unknown Venipuncture / Unknown 06/02/2024 3:16 PM EDT 06/02/2024 3:17 PM EDT us Nitin Masters MD LAB BLOOD ORDERABLES Final R esult Performing Organization Address City/[facility]/ZIP Co de Phone Number [facility] [address] [place] [address], [place] [phone] * C-reactive protein (06/02/2024 3:16 PM EDT) [facility] C-Reactive Protein <0.29 <=0.50 mg/dL LAB CHEMISTRY METHOD 06/02/2024 5:55 PM EDT [facility] Blood Venous blood specimen / Unknown Venipuncture / Unknown 06/02/2024 3:16 PM EDT 06/02/2024 3:17 PM EDT us Nitin Masters MD LAB BLOOD ORDERABLES Final R esult Performing Organization Address City/[facility]/ZIP Co de Phone Number [facility] [address] [place] [address], [place] [phone] * Alanine aminotransferase (06/02/2024 3:16 PM EDT) ALT (SGPT) 24 10 - 60 unit/L LAB CHEMISTRY METHOD 06/02/2024 5:35 PM EDT [facility] Blood Venous blood specimen / Unknown Venipuncture / Unknown 06/02/2024 3:16 PM EDT 06/02/2024 3:17 PM EDT us Nitin Masters MD LAB BLOOD ORDERABLES Final R esult Performing Organization Address [facility]/ZIP Co de Phone Number [facility] [address] [place] [address], [place] [phone] * Aspartate aminotransferase (06/02/2024 3:16 PM EDT) AST (SGOT) 26 10 - 42 unit/L LAB CHEMISTRY METHOD 06/02/2024 5:55 PM EDT [facility] Blood Venous blood specimen / Unknown Venipuncture / Unknown 06/02/2024 3:16 PM EDT 06/02/2024 3:17 PM EDT us Nitin Masters MD LAB BLOOD ORDERABLES Final R esult Performing Organization Address City/[facility]/ZIP Co de Phone Number [facility] [address] [place] [address], [place] [phone] * Magnesium (06/02/2024 3:16 PM EDT) Only the most recent of2 resultswithin the time period is included. [facility] Magnesium 2.3 1.9 - 2.6 mg/dL LAB CHEMISTRY METHOD 06/02/2024 5:35 PM EDT [facility] Blood Venous blood specimen / Unknown Venipuncture / Unknown 06/02/2024 3:16 PM EDT 06/02/2024 3:17 PM EDT Micheline Chung NP LAB BLOOD ORDERABLES Final Result [facility] [address] [place] [address], [place] [phone] * Basic metabolic panel (06/02/2024 3:16 PM EDT) Only the most recent of2 resultswithin the time period is included. [facility] Sodium 136 133 - 145 mmol/L LAB CHEMISTRY METHOD 06/02/2024 5:[address] [facility] Potassium 4.5 3.5 - 5.5 mmol/L LAB CHEMISTRY METHOD 06/02/2024 5:[address] [facility] Chloride 102 96 - 110 mmol/L LAB CHEMISTRY METHOD 06/02/2024 5:[address] [facility] CO2 29 21 - 32 mmol/L LAB CHEMISTRY METHOD 06/02/2024 5:[address] [facility] Anion Gap 5 3 - 11 LAB CHEMISTRY METHOD 06/02/2024 5:[address] [facility] Glucose 98 70 - 100 mg/dL LAB CHEMISTRY METHOD 06/02/2024 5:[address] [facility] BUN 22 5 - 25 mg/dL LAB CHEMISTRY METHOD 06/02/2024 5:55 PM EDT [facility] Creatinine 0.89 0.50 - 1.10 mg/dL LAB CHEMISTRY METHOD 06/02/2024 5:55 PM EDT [facility] eGFR 63 >=60 mL/min/1. 73m2 LAB CHEMISTRY METHOD 06/02/2024 5:55 PM EDT [facility] Comment:Calculation based on the??Chronic Kidney Disease Epidemiology Collaboration (CKD-EPI) equation refit??without adjustment for race. BUN/Creatinine Ratio 24.7 LAB CHEMISTRY METHOD 06/02/2024 5:55 PM EDT [facility] Calcium 9.3 8.5 - 10.5 mg/dL LAB CHEMISTRY METHOD 06/02/2024 5:55 PM EDT [facility] Blood Venous blood specimen / Unknown Venipuncture / Unknown 06/02/2024 3:16 PM EDT 06/02/2024 3:17 PM EDT Micheline Chung NP LAB BLOOD ORDERABLES Final Result Performing Organization Address City/[facility]/ZIP Co de Phone Number [facility] [address] [place] [address], [place] [phone] * (ABNORMAL) B-type natriuretic peptide (06/02/2024 3:13 PM EDT) BNP 175(H) <=100 pcg/mL LAB CHEMISTRY METHOD 06/02/2024 5:24 PM EDT [facility] Blood Venous blood specimen / Unknown Venipuncture / Unknown 06/02/2024 3:13 PM EDT 06/02/2024 3:13 PM EDT Micheline Chung NP LAB BLOOD ORDERABLES Final Result [facility] [address] [place] [address], [place] [phone] * (ABNORMAL) CBC auto differential (06/02/2024 3:10 PM EDT) [facility] Signature WBC 3.5(L) 4.8 - 10.8 K/mcL LAB HEMETOLOGY METHOD 06/02/2024 4:57 PM EDT [facility] RBC 3.30(L) 3.80 - 4.80 M/mcL LAB HEMETOLOGY METHOD 06/02/2024 4:57 PM EDT [facility] Hemoglobin 10.6(L) 11.5 - 16.0 g/dL LAB HEMETOLOGY METHOD 06/02/2024 4:57 PM EDT [facility] Hematocrit 31.7(L) 35.0 - 47.0 % LAB HEMETOLOGY METHOD [facility]/02[facility]2024 [facility] MCV 96.9 79.0 - 98.0 FL LAB HEMETOLOGY METHOD 06/02/2024 4:57 PM EDT [facility] MCH 32.4(H) 27.0 - 32.0 pcg LAB HEMETOLOGY METHOD 06/02/2024 4:57 PM EDT [facility] MCHC 33.4 32.0 - 37.0 g/dL LAB HEMETOLOGY METHOD 06/02/2024 4:[facility] RDW 13.7 11.0 - 15.0 % LAB HEMETOLOGY METHOD 06/02/2024 4:57 PM EDT [facility] Platelets 165 130 - 400 K/mcL LAB HEMETOLOGY METHOD 06/02/2024 4:57 PM EDT [facility] MPV 10.7 7.0 - 11.0 FL LAB HEMETOLOGY METHOD 06/02/2024 4:[facility] NRBC 0.0 <1.0 % LAB HEMETOLOGY METHOD 06/02/2024 4:57 PM EDT [facility] NRBC Absolute 0.00 <0.10 K/mcL LAB HEMETOLOGY METHOD 06/02/2024 4:57 PM EDT [facility] Neutrophils Relative 42.8 % LAB HEMETOLOGY METHOD 06/02/2024 4:57 PM EDT [facility] Lymphocytes Relative 39.8 % LAB HEMETOLOGY METHOD 06/02/2024 4:57 PM EDT [facility] Monocytes Relative 13.4 % LAB HEMETOLOGY METHOD 06/02/2024 4:57 PM EDT [facility] Eosinophils Relative 2.6 % LAB HEMETOLOGY METHOD 06/02/2024 4:57 [facility] Basophils Relative 1.1 % LAB HEMETOLOGY METHOD 06/02/2024 4:57 [facility] Immature Granulocytes Relative 0.3 % LAB HEMETOLOGY METHOD 06/02/2024 4:[address] [facility] Neutrophils Absolute 1.51 1.50 - 7.00 K/mcL LAB HEMETOLOGY METHOD 06/02/2024 4:57 PM EDT [facility] Lymphocytes Absolute 1.40 1.00 - 5.00 K/mcL LAB HEMETOLOGY METHOD 06/02/2024 4:[address] [facility] Monocytes Absolute 0.47 0.20 - 1.00 K/mcL LAB HEMETOLOGY METHOD 06/02/2024 4:57 PM EDT [facility] Eosinophils Absolute 0.09 0.00 - 0.50 K/mcL LAB HEMETOLOGY METHOD 06/02/2024 4:57 PM EDT [facility] Basophils Absolute 0.04 0.00 - 0.20 K/mcL LAB HEMETOLOGY METHOD 06/02/2024 4:[address] [facility] Immature Granulocytes Absolute 0.01 0.00 - 0.03 K/mcL LAB HEMETOLOGY METHOD 06/02/2024 4:57 PM EDT [facility] Blood Venous blood specimen / Unknown Venipuncture / Unknown 06/02/2024 3:10 PM EDT 06/02/2024 3:10 PM EDT us Nitin Masters MD LAB BLOOD ORDERABLES Final R esult [facility] [address] [place] [address], [place] [phone] * Sedimentation rate (06/02/2024 3:10 PM EDT) Sed Rate 4 0 - 30 mm/hr LAB HEMETOLOGY METHOD 06/02/2024 5:33 PM EDT [facility] Blood Venous blood specimen / Unknown Venipuncture / Unknown 06/02/2024 3:10 PM EDT 06/02/2024 3:10 PM EDT us Nitin Masters MD LAB BLOOD ORDERABLES Final R esult Performing Organization Address City/[facility]/ZIP Co de Phone Number [facility] [address] [place] [address], [place] [phone] * Cardiac device check - Remote- MURJ (05/15/2024 7:15 PM EDT) Only the most recent of2 resultswithin the time period is included. Date Time Interrogation Session [id number] CV DEVICE CHECK Type Interrogation Session Remote Scheduled CV DEVICE CHECK Implantable Pulse Generator Tool And Die Maker App[employer]ice [employer] CV DEVICE CHECK Implantable Pulse Generator Type IPG CV DEVICE CHECK Implantable Pulse Generator Model 2272 Assurity MRI(TM) CV DEVICE CHECK Implantable Pulse Generator Serial Number [id number] CV DEVICE CHECK Implantable Pulse Generator Implant Date 20220627 CV DEVICE CHECK Battery Remaining Percentage 88.00 CV DEVICE CHECK Battery Remaining Longevity 100.0 CV DEVICE CHECK Battery Voltage 2.990 CV D EVICE CHECK Battery BOTTLE SELECTOR Trigger 2.600 CV DEVICE CHECK Battery Status Middle of Service CV DEVICE CHECK Yazan Statistic RA Percent Paced 99.00 CV DEVICE CHECK Yazan Statistic RV Percent Paced 95.00 CV DEVICE CHECK Atrial Tachy Statistic AT/AF [place] Percent 0.00 CV DEVICE CHECK Lead Channel Sensing Intrinsic Amplitude 5.000 CV DEVICE CHECK Lead Channel Setting Sensing Sensitivity 0.50 CV DEVICE CHECK Lead Channel Impedance Value 290 CV DEVICE CHECK Lead Channel Pacing Threshold Amplitude 0.625 CV DEVICE CHECK Lead Channel Pacing Threshold Pulse Width 0.4 CV DEVICE CHECK Lead Channel RA Pacing Threshold Date 2023-10-23 CV DEVICE CHECK Lead Channel Setting Pacing Amplitude 1.625 CV DEVICE CHECK Lead Channel Setting Pacing Pulse Width 0.4 CV DEVICE CHECK Lead Channel Sensing Intrinsic Amplitude 8.500 CV DEVICE CHECK Lead Channel Setting Sensing Sensitivity 2.00 CV DEVICE CHECK Lead Channel Impedance Value 400 CV DEVICE CHECK Lead Channel Pacing Threshold Amplitude 0.625 CV DEVICE CHECK Lead Channel Pacing Threshold Pulse Width 0.4 CV DEVICE CHECK Lead Channel RV Pacing Threshold Date 2023-10-23 CV DEVICE CHECK Lead Channel Setting Pacing Amplitude 0.875 CV DEVICE CHECK Lead Channel Setting Pacing Pulse Width 0.4 CV DEVICE CHECK Yazan Setting Mode (NBG Code) DDDR CV DEVICE CHECK Yazan Setting Lower Rate Limit 60 CV DEVICE CHECK Yazan Setting AT Mode Switch Rate 200 CV DEVICE CHECK Yazan Setting Maximum Tracking Rate 120 CV DEVICE CHECK Yazan Setting Maximum Sensor Rate 120 CV DEVICE CHECK Yazan Setting PAV Delay 275 CV DEVICE CHECK Yazan Setting BIANCA Delay 250 CV DEVICE CHECK Date of Service 2023-11-05 CV DEVICE CHECK Anatomical Region Laterality Modality Device Interroga tion 10/23/2023 2:00 AM EDT Impressions 11/05/2023 12:46 PM EDT Normal Remote: No Events ?? Narrative Procedure Note Lazaro Lynch MD - 05/15/2024 IMPRESSION: Normal Remote: No Events us Lazaro Lynch MD CV IMPLANTABLE CARDIAC DEVICE PROCEDURES Final Result * XR Foot 3+ Views Left (04/20/2024 2:04 PM EDT) Anatomical Region Laterality Modality Lower Extremities, Foot Left Radiogra phic Imaging 04/20/2024 2:48 PM EDT Impressions 04/20/2024 2:52 PM EDT 1. No gross acute fractures. ??If further evaluation is needed, consider MRI foot 2. Marked osteoarthritic changes. 3. Marked hallux valgus deformity 4. Moderate soft tissue swelling -------- FINAL REPORT -------- Dictated By: Jessica Jiménez Dictated Date: 04/20/2024 14:48 ET Assigned Physician: Jessica Jiménez Reviewed and Electronically Signed By: Jessica Jiménez Signed Date: 04/20/2024 14:52 ET Workstation ID: [id number] Transcribed By: Self Edit Transcribed Date: 04/20/2024 14:48 ET Narrative 04/20/2024 2:52 PM EDT HISTORY: left foot pain TECHNIQUE: AP, lateral, and oblique radiographs of the left foot COMPARISON: None FINDINGS: ?? Decreased bony mineralization. ??Marked hallux valgus deformity. ??Severe DIP and PIP joint space narrowing at the 2nd through 5th digits with subchondral sclerosis. ??Moderate joint space narrowing at the tarsometatarsal joint with subchondral sclerosis. ??The talar dome is grossly intact. ??Moderate soft tissue swelling is present. Procedure Note Jessica Jiménez MD - 04/20/2024 HISTORY: left foot pain TECHNIQUE: AP, lateral, and oblique radiographs of the left foot COMPARISON: None FINDINGS: Decreased bony mineralization. Marked hallux valgus deformity. SevereDIP and PIP joint space narrowing at the 2nd through 5th digits withsubchondral sclerosis. Moderate joint space narrowing at thetarsometatarsal joint with subchondral sclerosis. The talar dome isgrossly intact. Moderate soft tissue swelling is present. IMPRESSION: 1. No gross acute fractures. If further evaluation is needed, considerMRI foot 2. Marked osteoarthritic changes. 3. Marked hallux valgus deformity 4. Moderate soft tissue swelling -------- FINAL REPORT -------- Dictated By: Jessica Jiménez Dictated Date: 04/20/2024 14:48 ET Assigned Physician: Jessica Jiménez Reviewed and Electronically Signed By: Jessica Jiménez Signed Date: 04/20/2024 14:52 ET Workstation ID: [id number] Transcribed By: Self Edit Transcribed Date: 04/20/2024 14:48 ET Tera Serrano MD IMG XR PROCEDURES Yari l Result from Last 3 Months Insurance [employer] Care Teams Physiotherapy Aide Relationship Specialty Start Date End Date Tera Serrano MD [address] [place] [address] PCP - General Internal Medicine 02/25/24
--- OUTSIDE RECORDS SUMMARY | 2024-07-01 15:38 | XMS_ITS | Encounter Summary ---
Author Organization [facility] Address [address] [place] [address] Care Team Providers Care Centrifugal Drier Operator Name Role Phone Tera Serrano MD Primary Care Provider Reason for Visit * Reason Onset Date Comments Insurance Referral 06/09/2024 [employer] Encounter Details Date Type Department Care Team ([facility] st Contact Info) Description 06/09/2024 Telephone Adult Medicine [address] [phone] [place] Insurance Referral ([facility]) Social History Tobacco Use Types Packs/Day Years [...] care for your loved ones. 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 [...] on file documented as of this encounter Plan of Treatment Upcoming Encounters Date Type Department Care Team (Late st Contact Info) Description 07/15/2024 1:45 PM EDT Office Visit Orthopedic Surgery [facility] [address] [phone] Shaka Navarro, DPM [address] [address] 07/23/2024 1:00 PM EDT Office Visit Adult Medicine [address] [phone] Tera Serrano MD [address] [place] [address] [place] [address] 07/27/2024 10:30 AM EDT Ancillary Procedure [facility] [address] [facility] [address] [place] [address] 09/17/2024 2:30 PM EDT Office Visit Orthopedic Surgery - [place] 250 [address] [facility] [address] [place] [address] Shaka Navarro, DPM 175 [facility] [address] [place] [address] documented as of this encounter Visit Diagnoses Not on filedocumented in this encounter Care Teams Centrifugal Drier Operator Relationship Specialty Start Date End Date Tera Serrano MD [address] [place] [address] PCP - General Internal Medicine 02/25/24 documented as of this encounter
--- NOTE | 2024-07-02 07:58 | MHC.AU.ANO ---
Adult Audiological Evaluation Date of Visit: 07/01/24 Reason for Appointment: Danelle visited with her Donald, brought with her an audiogram from November 2023 from [facility] and an approval of appointment coverage for [facility] from her [employer] plan. She has a moderate SNHL and states she is interested in hearing aids but cost is a major factor, was told to come here by her insurance as her appointment at [facility] was not covered and she did not know until she received a bill. I called her [employer]5 plan to inquire further, the approval she had with her was for a hearing test (may be subject to cost sharing), but hearing aids are not covered except via [employer] discount. She also has a benefit bank card she can use towards hearing aids, limit of $500 per year. Discussed options for hearing aids through our office and that updated hearing test would be needed should she want to pursue. Patient ultimately decided to contact [employer] as she states she is not comfortable spending money on our basic technology curry even if her benefit bank card can be used here. Notes she has many family members with hearing aids, may contact them to see if there are any old pairs that might be an option to reprogram for her use, will contact us if so. Diagnosis: Primary Diagnosis: H90.3 Bilateral Sensorineural Hearing Loss Signature: Provider: Jannie Jamison, CCC-A
== END 2024-07-01 15:31 | disposition home or self-care (01) ==
LOC: HO.SH 15:30
PROVIDERS: Visit Provider Internal Medicine
DX: Z13.89 Encounter for screening for other disorder (principal)